=== PATIENT | female | born 1990 | race Caucasian/White ===

== ENCOUNTER 2017-02-08 03:52 | Emergency (ER) | payer BC ==
[~2017-02-08] VITALS: Ht 165.1 cm; Wt 82.6 kg
[2017-02-08 04:22] VITALS: BP 116/71
[2017-02-08 04:26] LABS: BASO # 0.1 x10^3/uL (0.0-0.2); BASO % 1 % (0-3); EOS % 1 % (0-3); HEMATOCRIT 31.3 % (36.0-47.0); HEMOGLOBIN 9.9 g/dL (12.0-15.5); LYMPH # 2.2 x10^3/uL (1.0-4.8); LYMPH % 16 % (24-48); MEAN CORPUSCULAR HEMOGLOBIN 20 pg (25-35); MEAN CORPUSCULAR HGB CONC 32 g/dL (31-37); MEAN CORPUSCULAR VOLUME 62 fL (79-100); MONO % 8 % (0-9); NEUT % 76 % (31-73); PLATELET COUNT 238 x10^3/uL (140-400); RED BLOOD COUNT 5.05 x10^6/uL (3.50-5.40); WHITE BLOOD COUNT 14.1 x10^3/uL (4.0-11.0)
[2017-02-08 04:28] LABS: BILIRUBIN,URINE NEGATIVE (NEG); GLUCOSE,URINE NEGATIVE (NEG); NITRITE,URINE POSITIVE (NEG); PH,URINE 6.5; PROTEIN,URINE 30 mg/dL (NEG-TRACE)
[2017-02-08] MEDS ORDERED: KETOROLAC 15 MG/ML VIAL. IV ONE (04:30)
[2017-02-08] MEDS ORDERED: IV NORMAL SALINE 1000ML BAG 1,000 ML IV ONE (04:30)
[2017-02-08] MEDS ORDERED: ONDANSETRON PF 4 MG/2 ML VIAL. IV ONE (04:30)
[2017-02-08 04:39] LABS: CALCIUM 9.2 mg/dL (8.5-10.1); CREATININE 0.8 mg/dL (0.6-1.0); GFR 86.7; POTASSIUM 3.5 mmol/L (3.5-5.1)
[2017-02-08 04:44] LABS: ALBUMIN 4.1 g/dL (3.4-5.0); ALBUMIN/GLOBULIN RATIO 1.2 (1.0-1.7); TOTAL BILIRUBIN 0.8 mg/dL (0.2-1.0); TOTAL PROTEIN 7.5 g/dL (6.4-8.2)
[2017-02-08 04:53] LABS: BACTERIA,URINE FEW /HPF (0-FEW); WBC,URINE TNTC /HPF (0-4)
[2017-02-08 04:54] LABS: SQUAMOUS EPITHELIAL CELL,UR OCC /LPF
[2017-02-08] MEDS ORDERED: PHEN-318 PO (05:37)
[2017-02-08] MEDS ORDERED: CEPH-264 PO (05:37)
--- NOTE | 2017-02-08 05:37 | PHYS DOC ---
Past Medical History Past Medical History: No Pertinent History Past Surgical History: Other Additional Past Surgical Histo: KNEE Alcohol Use: Rarely Drug Use: None Adult General Chief Complaint Chief Complaint: ABDOMINAL PAIN HPI HPI Patient is a 26 year old female who presents here today complaining of left- sided abdominal pain started approximately 7 PM. Patient complains of dysuria frequency or urgency. Patient reports that the symptoms were similar to what she would expect for urinary tract infection so she started taking over-the- counter Azo. Patient reports that that is why her urine is dark colored. Patient has any fevers shakes chills nausea vomiting or diarrhea. Patient reports her last menstrual period was approximately one month ago. Patient denies any cough cold or runny nose. Patient has any chest pain. Patient has any vaginal discharge. Patient has no past medical history. No prior surgeries does not smoke drink or do any drugs. Patient's physical exam was significant for tenderness to palpation to her left flank and left lower quadrant area. Patient reports pain is constant noncolicky nature. Patient reports currently feels very comfortable laying in bed. Patient' s abdomen was soft nondistended no rebound or guarding. Normal active bowel sounds. Patient exhibiting signs or symptoms of be consistent with an acute surgical abdomen Patient's ER workup consisted of labs and a UA. Patient's UA was significant for markedly elevated WBCs and RBCs in her urine consistent with urinary tract infection. #1 left flank pain consistent with a urinary tract infection. Patient was given a dose of Rocephin the ER as well as pain medicines. Patient feels significantly improved and feels very couple the plan to be discharged home. Patient be sent home with a prescription for Keflex he'll be instructed to follow-up with her doctor within 24-48 hours for reevaluation. Patient will be instructed to return the ER sooner if she has any further problems. Review of Systems Review of Systems Constitutional: Denies fever or chills [] Eyes: Denies change in visual acuity, redness, or eye pain [] HENT: Denies nasal congestion or sore throat [] All other review systems are negative except as documented in the history of present illness portion. Current Medications Current Medications Current Medications Medications (Trade) Dose Ordered Sig/Judy Start Time Stop Time Status Last Admin Dose Admin Ceftriaxone Sodium 50 ml @ 100 mls/hr 1X ONCE 02/08/17 05:15 02/08/17 05:44 02/08/17 05:20 100 MLS/HR Ketorolac Tromethamine (Toradol) 30 mg 1X ONCE 02/08/17 04:30 02/08/17 04:31 DC 02/08/17 04:42 30 MG Ondansetron HCl (Zofran) 4 mg 1X ONCE 02/08/17 04:30 02/08/17 04:31 DC 02/08/17 04:42 4 MG Sodium Chloride 1,000 ml @ 1,000 mls/hr 1X ONCE 02/08/17 04:30 02/08/17 05:29 DC 02/08/17 04:43 1,000 MLS/HR Allergies Allergies Allergies Coded Allergies Type Severity Reaction Last Updated Verified Sulfa (Sulfonamide Antibiotics) Allergy Unknown 02/08/17 Yes amoxicillin Allergy Unknown 02/08/17 Yes clavulanic acid Allergy Unknown 02/08/17 Yes Physical Exam Physical Exam Constitutional: Well developed, well nourished, no acute distress, non-toxic appearance. [] HENT: Normocephalic, atraumatic, bilateral external ears normal, oropharynx moist, no oral exudates, nose normal. [] Eyes: PERRLA, EOMI, conjunctiva normal, no discharge. [] Neck: Normal range of motion, no tenderness, supple, no stridor. [] Cardiovascular:Heart rate regular rhythm, no murmur [] Lungs & Thorax: Bilateral breath sounds clear to auscultation [] Abdomen: mild tend to palp llq Back: mild tenderness to palp l flank Extremities: No tenderness, no cyanosis, no clubbing, ROM intact, no edema. [] Neurologic: Alert and oriented X 3, normal motor function, normal sensory function, no focal deficits noted. [] Psychologic: Affect normal, judgement normal, mood normal. [] Current Patient Data Vital Signs Vital Signs Date Time Temp Pulse Resp B/P (MAP) Pulse Ox O2 Delivery O2 Flow Rate FiO2 02/08/17 04:22 99.1 93 16 116/71 (86) 97 Room Air 99.1 Lab Values Laboratory Tests Test 02/08/17 03:09 02/08/17 04:00 02/08/17 04:10 POC Urine HCG, Qualitative Hcg negative (Negative) Urine Collection Type Unknown Urine Color [place] Urine Clarity Cloudy Urine pH 6.5 Urine Specific [place] 1.015 Urine Protein 30 mg/dL (NEG-TRACE) Urine Glucose (UA) Negative mg/dL (NEG) Urine Ketones (Stick) Negative mg/dL (NEG) Urine Blood Large (NEG) Urine Nitrite Positive (NEG) Urine Bilirubin Negative (NEG) Urine Urobilinogen Dipstick 1.0 mg/dL (0.2 mg/dL) Urine Leukocyte Esterase Large (NEG) Urine RBC 11-20 /HPF (0-2) Urine WBC Tntc /HPF (0-4) Urine Squamous Epithelial Cells Occ /LPF Urine Bacteria Few /HPF (0-FEW) Urine Mucus Slight /LPF White Blood Count 14.1 x10^3/uL (4.0-11.0) H Red Blood Count 5.05 x10^6/uL (3.50-5.40) Hemoglobin 9.9 g/dL (12.0-15.5) L Hematocrit 31.3 % (36.0-47.0) L Mean Corpuscular Volume 62 fL (79-100) L Mean Corpuscular Hemoglobin 20 pg (25-35) L Mean Corpuscular Hemoglobin Concent 32 g/dL (31-37) Red Cell Distribution Width 16.0 % (11.5-14.5) H Platelet Count 238 x10^3/uL (140-400) Neutrophils (%) (Auto) 76 % (31-73) H Lymphocytes (%) (Auto) 16 % (24-48) L Monocytes (%) (Auto) 8 % (0-9) Eosinophils (%) (Auto) 1 % (0-3) Basophils (%) (Auto) 1 % (0-3) Neutrophils # (Auto) 10.7 x10^3uL (1.8-7.7) H Lymphocytes # (Auto) 2.2 x10^3/uL (1.0-4.8) Monocytes # (Auto) 1.1 x10^3/uL (0.0-1.1) Eosinophils # (Auto) 0.1 x10^3/uL (0.0-0.7) Basophils # (Auto) 0.1 x10^3/uL (0.0-0.2) Platelet Estimate Pending Sodium Level 141 mmol/L (136-145) Potassium Level 3.5 mmol/L (3.5-5.1) Chloride Level 104 mmol/L (98-107) Carbon Dioxide Level 27 mmol/L (21-32) Anion Gap 10 (6-14) Blood Urea Nitrogen 9 mg/dL (7-20) Creatinine 0.8 mg/dL (0.6-1.0) Estimated GFR (Cockcroft-Gault) 86.7 BUN/Creatinine Ratio 11 (6-20) Glucose Level 93 mg/dL (70-99) Calcium Level 9.2 mg/dL (8.5-10.1) Total Bilirubin 0.8 mg/dL (0.2-1.0) Aspartate Amino Transferase (AST) 15 U/L (15-37) Alanine Aminotransferase (ALT) 17 U/L (14-59) Alkaline Phosphatase 44 U/L (46-116) L Total Protein 7.5 g/dL (6.4-8.2) Albumin 4.1 g/dL (3.4-5.0) Albumin/Globulin Ratio 1.2 (1.0-1.7) Laboratory Tests 02/08/17 04:10 Laboratory Tests 02/08/17 04:10 EKG EKG [] Radiology/Procedures Radiology/Procedures [] Course & Med Decision Making Course & Med Decision Making Pertinent Labs and Imaging studies reviewed. (See chart for details) [] Dragon Disclaimer Dragon Disclaimer This electronic medical record was generated, in whole or in part, using a voice recognition dictation system. Departure Departure Impression: Primary Impression: Abdominal pain Additional Impression: Urinary tract infection Disposition: 01 HOME, SELF-CARE Condition: IMPROVED Referrals: NO PCP (PCP) Patient Instructions: Abdominal Pain, Urinary Tract Infection Scripts Phenazopyridine Hcl (PYRIDIUM) 200 Mg Tablet 200 MG PO TID, #9 TAB Prov: CLARK LOPEZ MD 02/08/17 Cephalexin (KEFLEX) 500 Mg Capsule 500 MG PO QID for 10 Days, CAP Prov: CLARK LOPEZ MD 02/08/17 Problem Qualifiers Primary Impression: Abdominal pain Abdominal location: left lower quadrant Qualified Codes: R10.32 - Left lower quadrant pain Additional Impression: Urinary tract infection Urinary tract infection type: acute pyelonephritis Qualified Codes: N10 - Acute pyelonephritis CLARK LOPEZ MD February 08, 2017 05:37
[2017-02-08 11:27] LABS: ANISOCYTOSIS SLIGHT; HYPOCHROMIA PRESENT; MICROCYTOSIS PRESENT; PLT ESTIMATE ADEQUATE (ADEQUATE); POIKILOCYTOSIS PRESENT
== END 2017-02-08 05:45 | disposition home or self-care (01) ==
LOC: ER 03:52
DX: N39.0 Urinary tract infection, site not specified (principal); Z88.2 Allergy status to sulfonamides; Z88.1 Allergy status to other antibiotic agents; Z88.8 Allergy status to other drugs, medicaments and biological substances
CPT/HCPCS: 36415; 80053; 81001; 81025; 85007; 85027; 87086; 87186; 96361; 96365; 96375; 99284; J0690; J1885; J2405; J7030